=== PATIENT | male | born 1955 | race Caucasian/White ===

== ENCOUNTER → 2020-09-03 15:22 | Outpatient (ROUT) | payer OTHER, SELFPAY ==
[2020-09-03 15:50] LABS: Add Manual Diff / Slide Review NO; Basophils Absolute Auto 100 /uL (0-100); Basophils Percent Auto 2.8 % (0-2); Eosinophils Absolute Auto 100 /uL (0-450); Hematocrit 42.6 % (41-53); Hemoglobin 14.9 g/dL (13.5-17.5); Lymphocytes Absolute Auto 1000 /uL (1100-4500); Lymphocytes Percent Auto 24.9 % (25-40); Mean Corpuscular HGB Conc 35.1 % (30-36); Mean Corpuscular Hemoglobin 35.2 PG (26-34); Mean Corpuscular Volume 100.2 fL (80-100); Monocytes Absolute Auto 400 /uL (0-900); Monocytes Percent Auto 11.6 % (3-14); Neutrophils Absolute Auto 2300 /uL (1500-7000); Neutrophils Percent Auto 58.7 % (50-75); Platelet Count 152 X10^3/uL (150-400); Red Blood Cell Count 4.25 X10^6/uL (4.5-5.9); Red Cell Distribution Width 12.9 % (11.6-14.8); White Blood Cell Count 3.9 X10^3/uL (4.5-11.0)
[2020-09-03 16:27] LABS: HEMOLYSIS < 15 (0-50)
[2020-09-03 16:30] LABS: TSH w/ Reflex to FT4 1.03 uIU/mL (0.47-4.68)
[2020-09-03 16:32] LABS: Aspartate Aminotransferase 34 IU/L (17-59); BUN Creatinine Ratio 24.2 (6-22); Blood Urea Nitrogen 16 mg/dL (9-20); Calcium 9.3 mg/dL (8.4-10.2); Carbon Dioxide 25 mmol/L (22-32); Chloride 103 mmol/L (98-107); Cholesterol 166 mg/dL (140-199); Estimated Glomerular Filt Rate > 60.0 mL/min (>60); Glucose 105 mg/dL (80-110); HDL Cholesterol 75 mg/dL (40-60); LDL Cholesterol Calculated 83 mg/dL (<100); Potassium 4.2 mmol/L (3.4-5.1); Sodium 133 mmol/L (137-145); Triglycerides 42 mg/dL (35-150)
[2020-09-03 17:15] LABS: Prostate Specific Antigen 0.472 ng/mL (0.10-4.00)
[2020-09-03 17:17] LABS: Testosterone 276 ng/dL (71.8-623)
[2020-09-03 21:03] LABS: Hepatitis B Surface Antigen NEGATIVE s/c (NEGATIVE)
[2020-09-03 21:21] LABS: HIV 1 & 2 Ab/Ag 4th Gen Combo NEGATIVE (NEGATIVE); Hep C Virus Ab w/Reflex Quant NEGATIVE s/c (NEGATIVE)
[2020-09-04 06:10] LABS: Hepatitis B Surf AB Quant <3.1 mIU/mL (Immunity>9.9)
== END ==
PROVIDERS: Family Provider Family Medicine; PCP Family Medicine; Visit Provider Internal Medicine
DX: E78.2 Mixed hyperlipidemia (principal); E03.9 Hypothyroidism, unspecified; I10 Essential (primary) hypertension
CPT/HCPCS: 80048; 80061; 84153; 84403; 84443; 84450; 85025; 86706; 86803; 87340; 87389

== ENCOUNTER → 2021-07-13 08:09 | Outpatient (CLI) | payer OTHER, SELFPAY ==
[2021-07-13 09:53] LABS: Hematocrit 41.1 % (41-53); Hemoglobin 14.7 g/dL (13.5-17.5); Mean Corpuscular HGB Conc 35.7 % (30-36); Mean Corpuscular Hemoglobin 34.6 PG (26-34); Mean Corpuscular Volume 97.1 fL (80-100); Platelet Count 147 X10^3/uL (150-400); Red Blood Cell Count 4.23 X10^6/uL (4.5-5.9); Red Cell Distribution Width 12.4 % (11.6-14.8)
[2021-07-13 10:04] LABS: Alanine Aminotransferase 20 IU/L (<50); Albumin 4.4 g/dL (3.5-5.0); Albumin Globulin Ratio 1.7 (1.0-2.8); Alkaline Phosphatase 54 U/L (38-126); Aspartate Aminotransferase 32 IU/L (17-59); BUN Creatinine Ratio 17.9 (6-22); Bilirubin Total 1.3 mg/dL (0.2-1.3); Blood Urea Nitrogen 15 mg/dL (9-20); Calcium 8.6 mg/dL (8.4-10.2); Carbon Dioxide 26 mmol/L (22-32); Chloride 104 mmol/L (98-107); Cholesterol 145 mg/dL (140-199); Estimated Glomerular Filt Rate > 60 mL/min (>60); Globulin 2.6 g/dL (1.7-4.1); Glucose 100 mg/dL (80-110); HDL Cholesterol 59 mg/dL (40-60); HEMOLYSIS < 15 (0-50); LDL Cholesterol Calculated 76 mg/dL (<100); Lipase 258 U/L (23-300); Potassium 3.7 mmol/L (3.4-5.1); Sodium 139 mmol/L (137-145); Triglycerides 49 mg/dL (35-150); Uric Acid 5.1 mg/dL (3.5-8.5)
[2021-07-13 10:31] LABS: Prostate Specific Antigen 0.555 ng/mL (0.10-4.00)
[2021-07-13 10:47] LABS: TSH w/ Reflex to FT4 2.05 uIU/mL (0.47-4.68)
== END ==
PROVIDERS: Family Provider Family Medicine; PCP Internal Medicine; Referring Provider Internal Medicine; Visit Provider Internal Medicine
DX: E03.9 Hypothyroidism, unspecified (principal); N40.0 Benign prostatic hyperplasia without lower urinary tract symptoms; R17 Unspecified jaundice; I25.10 Atherosclerotic heart disease of native coronary artery without angina pectoris
CPT/HCPCS: 36415; 80053; 80061; 82248; 83690; 84153; 84443; 84550; 85027

== ENCOUNTER → 2021-08-19 07:26 | Outpatient (CLI) | payer OTHER, SELFPAY ==
--- NOTE | 2021-08-19 07:28 | DI.US.S_ITS ---
PROCEDURE: US ABDOMEN COMPLETE INDICATIONS: JAUNDICE TECHNIQUE: Real-time scanning was performed of the abdominal and retroperitoneal organs, with image documentation. COMPARISON: None. FINDINGS: Liver: Liver is normal in size and homogeneous in echotexture. Gallbladder: The gallbladder is normal without stones, sludge, wall thickening, or pericholecystic fluid. Biliary ducts: Intrahepatic bile ducts are non-dilated. Extrahepatic bile duct caliber measures 5.8 mm. Normal is 6-7 mm or less in diameter, or 10 mm or less post-cholecystectomy. Pancreas: Visualized portions of the pancreas are sonographically normal. Spleen: Spleen is normal in size and homogeneous in echotexture. Kidneys: Kidneys are normal in size and echotexture. Right kidney measures 10.3 cm long; left kidney measures 11.0 cm long. No hydronephrosis or nephrolithiasis. No solid masses. Aorta: Visualized aorta is normal in caliber at less than 3 cm. Mild atherosclerotic plaque present in the mid to distal aorta. Iliacs: Proximal common iliac arteries are normal in caliber at less than 2.5 cm. IVC: Intrahepatic inferior vena cava is patent. Miscellaneous: No free abdominal fluid. IMPRESSION: 1. Normal sonographic appearance of the liver. If further imaging evaluation is needed, MR imaging of the liver and biliary tree may be useful. 2. No biliary dilatation. Dictated by: Latisha David M.D. on 08/19/2021 at 10:09 Approved by: Latisha David M.D. on 08/19/2021 at 10:14
--- NOTE | 2021-08-19 07:28 | DI.US.S_ITS ---
PROCEDURE: US CAROTID DOPPLER BI INDICATIONS: carotid stenosis TECHNIQUE: Color and pulse Doppler interrogation was performed of both carotid systems, with image documentation and velocity measurements. COMPARISON: [facility], US, US CAROTID BILATERAL, 09/19/2017, 7:10. [facility] Ul[facility]ound, US, US CAROTID DPLX DOPPLER BILAT, 03/31/2015, 7:30. [facility], [place], CAROTID ARTERY DOPPLER BILAT, 11/14/2013, 10:13. FINDINGS: Stenosis calculations are based on SRU (Society of Radiologists in Ultrasound) criteria. Right side: (Comparison made to the 2018 study.) Brachial blood pressure: 145/78 mm Hg. Common carotid artery peak systolic velocity: 85 cm/sec (prior 113 cm/s). Internal carotid artery peak systolic velocity: 112 cm/sec (prior 99 cm/s). Internal carotid artery end diastolic velocity: 28 cm/sec (prior 29 cm/s). External carotid artery peak systolic velocity: 82 cm/sec (prior 101 cm/s). ICA/CCA peak systolic ratio: 1.3 (prior 0.87). Barrios scale imaging description: Moderate atherosclerotic changes are seen. Percent internal carotid artery stenosis: Less than 50% by velocity criteria. Vertebral artery: Flow direction is antegrade. Left side: Brachial blood pressure: 86601 mm Hg. Common carotid artery peak systolic velocity: 118 cm/sec (prior 136 cm/s). Internal carotid artery peak systolic velocity: 259 cm/sec (prior 133 cm/s). Internal carotid artery end diastolic velocity: 58 cm/sec (prior 32 cm/s). External carotid artery peak systolic velocity: 94 cm/sec (prior 103 cm/s). ICA/CCA peak systolic ratio: 4.1 (prior 0.98). Barrios scale imaging description: Moderate atherosclerotic change can be seen. Percent internal carotid artery stenosis: Greater than 70%. Vertebral artery: Flow direction is antegrade. IMPRESSION: There is now greater than 70% stenosis seen involving the left internal carotid artery. Vascular surgery consultation is recommended. Dictated by: Reji Cid M.D. on 08/19/2021 at 9:28 Approved by: Reji Cid M.D. on 08/19/2021 at 9:32
== END ==
PROVIDERS: Family Provider Family Medicine; PCP Internal Medicine; Referring Provider Internal Medicine; Visit Provider Internal Medicine
DX: R17 Unspecified jaundice (principal); I65.23 Occlusion and stenosis of bilateral carotid arteries
CPT/HCPCS: 76700; 93880

== ENCOUNTER → 2022-05-13 10:39 | Outpatient (CLI) | payer OTHER, SELFPAY ==
--- NOTE | 2022-05-13 | DI.NM.S_ITS ---
PROCEDURE: NM FREDERICK PERF SPECT REST & STR Rest and exercise myocardial perfusion SPECT with gated imaging and ejection fraction RADIOPHARMACEUTICAL: 10.8 mCi Tc-99m sestamibi IV at rest and 25.7 mCi Tc-99m sestamibi IV at peak exercise. A one day-protocol was performed. INDICATIONS: Atherosclerotic heart disease of nondalton TECHNIQUE: Radiopharmaceutical was injected at peak stress test, and also at rest. SPECT images were obtained. SPECT myocardial perfusion images were displayed in short axis, horizontal long axis, and vertical long axis views. Gated images were reviewed using Nudge software. COMPARISON: None. CARDIAC STRESS: A standard Be treadmill exercise tolerance test was performed by the patient under the supervision of an attending staff. The patient exercised for 12 minutes and 1 seconds; functional aerobic impairment (TIERA) is -54%. Hemodynamic data: There is normal blood pressure and heart rate response to exercise stress. Patient achieved 106% of maximum predicted heart rate at peak exercise. Symptoms: Patient denied chest pain during exercise. EKG: Sinus rhythm with no ST changes at rest. Mild upsloping ST depressions in the inferior and anterolateral leads during recovery; rare PVCs. FINDINGS: Raw data: There is good myocardial labeling by radiotracer. No significant motion artifacts. Zycc-hl-jsbqv ratio is 0.21 (normal is less than 0.38 for sestamibi tracer, and less than 0.50 for thallium tracer). Left ventricle function: Gated images demonstrate normal left ventricle wall thickening. No segmental wall motion abnormality. No transient ischemic dilation; TID is 0.91 (normal less than 1.3). The left ventricle resting end-diastolic volume is 170 mL. Left ventricle stress ejection fraction is 61%; normal values are above 45%. Myocardial perfusion: There is normal distribution of activity in the left and right ventricular myocardium. No fixed or reversible perfusion defects. SSS 0. IMPRESSION: Low risk, normal treadmill nuclear stress test from ischemia standpoint. Enlarged LV with EDV 170cc. Consider Echo to assess cardiac morphology and function. 1) No perfusion evidence of ischemia or infarction. 2) Enlarged left ventricle (LVEDV 170cc) with normal wall motion, and normal systolic function (EF post stress 61%). 3) Mild upsloping ST depressions in the inferior and anterolateral leads during recovery. These changes are non-diagnostic in the setting of reassuring perfusion images. 4) No angina during the study. 5) Excellent exercise tolerance (12.6 METS, TIERA -54%). Target heart rate achieved. Appropriate BP response to exercise. 6) No prior nuclear stress test available for comparison. Dictated by: Samm Manzano MD on 05/13/2022 at 16:49 Approved by: Samm Manzano MD on 05/13/2022 at 16:55
== END ==
PROVIDERS: Family Provider Family Medicine; PCP Internal Medicine; Referring Provider Internal Medicine Cardiovascular Disease; Visit Provider Internal Medicine Cardiovascular Disease
DX: I25.10 Atherosclerotic heart disease of native coronary artery without angina pectoris (principal)
CPT/HCPCS: 78452; 93017; A9502

== ENCOUNTER → 2022-07-08 11:51 | Outpatient (CLI) | payer OTHER, SELFPAY ==
[2022-07-08 14:31] LABS: Erythrocyte Sedimentation Rate 2 MM/HR (0-15)
[2022-07-08 14:33] LABS: C-Reactive Protein Quant < 0.5 mg/dL (<1.0); Glucose 91 mg/dL (80-110)
[2022-07-08 14:43] LABS: Free T3, Triiodothyronine Free 3.01 pg/mL (2.77-5.27); Free T4, Direct Thyroxine 1.06 ng/dL (0.78-2.19)
[2022-07-08 14:56] LABS: Thyroid Stimulating Hormone 2.53 uIU/mL (0.47-4.68)
[2022-07-09 06:08] LABS: Labcorp Hemoglobin (Hb) A1c 4.6 % (4.8-5.6)
== END ==
PROVIDERS: Family Provider Family Medicine; PCP Internal Medicine; Referring Provider Internal Medicine; Visit Provider Internal Medicine
DX: M13.0 Polyarthritis, unspecified (principal); R73.01 Impaired fasting glucose; M06.9 Rheumatoid arthritis, unspecified; E03.9 Hypothyroidism, unspecified
CPT/HCPCS: 36415; 82947; 83036; 84439; 84443; 84481; 85651; 86140

== ENCOUNTER → 2023-01-04 09:15 | Outpatient (CLI) | payer OTHER, SELFPAY ==
[2023-01-04 09:57] LABS: Hematocrit 41.1 % (41-53); Hemoglobin 14.6 g/dL (13.5-17.5); Mean Corpuscular HGB Conc 35.4 % (30-36); Mean Corpuscular Hemoglobin 35.2 PG (26-34); Mean Corpuscular Volume 99.4 fL (80-100); Platelet Count 142 X10^3/uL (150-400); Red Blood Cell Count 4.14 X10^6/uL (4.5-5.9); Red Cell Distribution Width 12.9 % (11.6-14.8); White Blood Cell Count 3.4 X10^3/uL (4.5-11.0)
[2023-01-04 10:14] LABS: Hemoglobin A1C% w Est Avg Glu 4.7 % (4.0-6.0)
[2023-01-04 10:16] LABS: Alanine Aminotransferase 33 IU/L (<50); Albumin 4.4 g/dL (3.5-5.0); Albumin Globulin Ratio 1.7 (1.0-2.8); Alkaline Phosphatase 59 U/L (38-126); Aspartate Aminotransferase 39 IU/L (17-59); BUN Creatinine Ratio 19.8 (6-22); Bilirubin Total 1.6 mg/dL (0.2-1.3); Blood Urea Nitrogen 17 mg/dL (9-20); Calcium 9.5 mg/dL (8.4-10.2); Carbon Dioxide 29 mmol/L (22-32); Chloride 100 mmol/L (98-107); Cholesterol 148 mg/dL (140-199); Estimated Glomerular Filt Rate > 60 mL/min (>60); Globulin 2.6 g/dL (1.7-4.1); Glucose 104 mg/dL (80-110); HDL Cholesterol 99 mg/dL (40-60); HEMOLYSIS < 15 (0-50); LDL Cholesterol Calculated 42 mg/dL (<100); Potassium 4.1 mmol/L (3.4-5.1); Sodium 135 mmol/L (137-145); Triglycerides 33 mg/dL (35-150)
[2023-01-04 10:48] LABS: TSH w/ Reflex to FT4 1.18 uIU/mL (0.47-4.68)
== END ==
PROVIDERS: Family Provider Family Medicine; PCP Internal Medicine; Referring Provider Internal Medicine; Visit Provider Internal Medicine
DX: E78.2 Mixed hyperlipidemia (principal); I10 Essential (primary) hypertension; I25.10 Atherosclerotic heart disease of native coronary artery without angina pectoris; N40.0 Benign prostatic hyperplasia without lower urinary tract symptoms; E03.9 Hypothyroidism, unspecified; R73.01 Impaired fasting glucose
CPT/HCPCS: 36415; 80053; 80061; 83036; 84153; 84443; 85027

== ENCOUNTER → 2024-06-11 09:15 | Outpatient (CLI) | payer MEDICARE, OTHER, SELFPAY ==
[2024-06-11 09:54] LABS: Hematocrit 38.9 % (41-53); Hemoglobin 13.8 g/dL (13.5-17.5); Mean Corpuscular HGB Conc 35.5 % (30-36); Mean Corpuscular Hemoglobin 33.8 PG (26-34); Mean Corpuscular Volume 95.2 fL (80-100); Platelet Count 149 X10^3/uL (150-400); Red Blood Cell Count 4.08 X10^6/uL (4.5-5.9); Red Cell Distribution Width 12.4 % (11.6-14.8); White Blood Cell Count 3.4 X10^3/uL (4.5-11.0)
[2024-06-11 10:41] LABS: Alanine Aminotransferase 28 IU/L (<50); Albumin 4.6 g/dL (3.5-5.0); Albumin Globulin Ratio 1.9 (1.0-2.8); Alkaline Phosphatase 55 U/L (38-126); Aspartate Aminotransferase 36 IU/L (17-59); BUN Creatinine Ratio 26.5 (6-22); Blood Urea Nitrogen 22 mg/dL (9-20); Calcium 9.2 mg/dL (8.4-10.2); Carbon Dioxide 28 mmol/L (22-32); Chloride 101 mmol/L (98-107); Cholesterol 150 mg/dL (140-199); Estimated Glomerular Filt Rate > 60 mL/min (>60); Globulin 2.4 g/dL (1.7-4.1); Glucose 109 mg/dL (80-110); HDL Cholesterol 82 mg/dL (40-60); HEMOLYSIS < 15 (0-50); LDL Cholesterol Calculated 59 mg/dL (<100); Potassium 4.5 mmol/L (3.4-5.1); Sodium 136 mmol/L (137-145); Triglycerides 47 mg/dL (35-150)
[2024-06-11 11:11] LABS: Prostate Specific Antigen 0.452 ng/mL (0.10-4.00)
[2024-06-11 11:13] LABS: Testosterone 545 ng/dL (71.8-623)
== END ==
LOC: LAB 09:17
PROVIDERS: Family Provider Family Medicine; PCP Internal Medicine; Referring Provider Internal Medicine; Visit Provider Internal Medicine
DX: E03.9 Hypothyroidism, unspecified (principal); N40.1 Benign prostatic hyperplasia with lower urinary tract symptoms; I25.10 Atherosclerotic heart disease of native coronary artery without angina pectoris; R79.89 Other specified abnormal findings of blood chemistry; N13.8 Other obstructive and reflux uropathy; I10 Essential (primary) hypertension
CPT/HCPCS: 36415; 80053; 80061; 82088; 84153; 84244; 84403; 84443; 85027

== ENCOUNTER → 2024-07-02 07:02 | Outpatient (CLI) | payer MEDICARE, OTHER, SELFPAY ==
[2024-07-02 07:41] LABS: Add Manual Diff / Slide Review NO; Basophils Absolute Auto 100 /uL (0-100); Basophils Percent Auto 1.8 % (0-2); Eosinophils Absolute Auto 100 /uL (0-450); Eosinophils Percent Auto 3.1 % (2-4); Hematocrit 38.6 % (41-53); Hemoglobin 13.6 g/dL (13.5-17.5); Lymphocytes Absolute Auto 1100 /uL (1100-4500); Lymphocytes Percent Auto 35.2 % (25-40); Mean Corpuscular HGB Conc 35.2 % (30-36); Mean Corpuscular Hemoglobin 33.7 PG (26-34); Mean Corpuscular Volume 95.8 fL (80-100); Monocytes Absolute Auto 400 /uL (0-900); Monocytes Percent Auto 13.6 % (3-14); Neutrophils Absolute Auto 1500 /uL (1500-7000); Neutrophils Percent Auto 46.3 % (50-75); Platelet Count 148 X10^3/uL (150-400); Red Blood Cell Count 4.04 X10^6/uL (4.5-5.9); Red Cell Distribution Width 12.8 % (11.6-14.8); White Blood Cell Count 3.2 X10^3/uL (4.5-11.0)
[2024-07-02 07:59] LABS: BUN Creatinine Ratio 22.1 (6-22); Blood Urea Nitrogen 19 mg/dL (9-20); Calcium 9.3 mg/dL (8.4-10.2); Carbon Dioxide 25 mmol/L (22-32); Chloride 102 mmol/L (98-107); Estimated Glomerular Filt Rate > 60 mL/min (>60); Glucose 103 mg/dL (80-110); HEMOLYSIS < 15 (0-50); Potassium 4.8 mmol/L (3.4-5.1); Sodium 133 mmol/L (137-145)
[2024-07-02 08:29] LABS: Cortisol AM (Before 10AM) 13.8 ug/dL (4.46-22.7)
[2024-07-02 08:33] LABS: Ferritin 31 ng/mL (18-464)
== END ==
PROVIDERS: Family Provider Family Medicine; PCP Internal Medicine; Referring Provider Internal Medicine; Visit Provider Internal Medicine
DX: E26.9 Hyperaldosteronism, unspecified (principal); D61.818 Other pancytopenia
CPT/HCPCS: 36415; 80048; 82533; 82728; 85025

== ENCOUNTER → 2024-07-11 16:08 | Outpatient (CLI) | payer MEDICARE, OTHER, SELFPAY ==
--- NOTE | 2024-07-11 16:10 | DI.MRI.S_ITS ---
PROCEDURE: MR ANGIO ABDOMEN WO/W CON INDICATIONS: renal artery stenosis, hypertension TECHNIQUE: Precontrast axial and coronal TruFISP through the abdomen. Dynamic coronal MRA using Care Bolus timing during the administration of contrast. Post-contrast axial VIBE through the kidneys. 3-dimensional maximum intensity projection (MIP) reformats constructed. COMPARISON: [facility], US, US RENAL ARTERIAL DOPPLER, 07/04/2024, 10:35. FINDINGS: Image quality: Excellent. Renal arteries: Single bilateral renal arteries are present. T there is a high-grade, roughly 70% stenosis of the proximal non ostial right renal artery. There is mild diffuse stenosis of the left renal artery. Abdominal aorta: Aorta is normal in caliber, and is patent. Mesenteric arteries: Celiac trunk, superior and inferior mesenteric arteries are widely patent. Extravascular soft tissues: Visualized solid organs appear normal in size on limited pre-contrast images. No retroperitoneal or mesenteric adenopathy by size criteria. Bowel loops are normal in caliber. No free fluid. No ventral hernias. Bones: Marrow demonstrates normal overall signal. IMPRESSION: High-grade right renal artery stenosis. Dictated by: Lian Farias M.D. on 07/11/2024 at 16:47 Approved by: Lian Farias M.D. on 07/11/2024 at 16:49
== END ==
PROVIDERS: Family Provider Family Medicine; PCP Internal Medicine; Referring Provider Internal Medicine; Visit Provider Internal Medicine
DX: I70.1 Atherosclerosis of renal artery (principal); I10 Essential (primary) hypertension
CPT/HCPCS: C8902; A9579

== ENCOUNTER → 2024-07-12 14:12 | Outpatient (CLI) | payer MEDICARE, OTHER, SELFPAY ==
--- NOTE | 2024-07-12 14:13 | DI.CT.S_ITS ---
PROCEDURE: CT ANGIO ABDOMEN PELVIS INDICATIONS: right renal artery stenosis TECHNIQUE: After the administration of intravenous contrast, 2.5 mm sections acquired from the diaphragm to the iliac crests. 10 mm maximum intensity projection (MIP) coronal and sagittal reformats were then performed. For radiation dose reduction, the following was used: automated exposure control. COMPARISON: [facility], US, US RENAL ARTERIAL DOPPLER, 07/04/2024, 10:35. FINDINGS: Image quality: Diagnostic. Abdominal aorta: No aortic aneurysm or evidence of acute aortic syndrome. Mesenteric arteries: Patent without hemodynamically significant stenosis. Renal arteries: There is a short segment of 50% narrowing of the mid right renal artery (series 4, image 57), measuring 7 mm in length. No hemodynamically significant stenosis of the left renal artery. Lower chest: Unremarkable. ABDOMEN: Liver: No solid mass. Gallbladder: No radiopaque gallstones or wall thickening. Biliary ducts: No biliary dilation. Pancreas: No ductal dilation. Pancreatic divisum versus prominent accessory duct. Spleen: Size is within normal limits. Adrenal Glands: No adrenal nodules. Kidneys and Ureters: No hydronephrosis. No solid mass. No complex renal cystic lesion which requires follow up. Stomach and Bowel: Normal colonic caliber, without significant wall thickening. Colonic diverticulosis without evidence of diverticulitis. Peritoneum: No abnormal intraperitoneal fluid. No free air. Ventral Wall: No hernia. Abdominal Nodes: No retroperitoneal or mesenteric adenopathy by size criteria. Vessels: Aorta, as above. Normal IVC. PELVIS: Pelvic Organs: Unremarkable. Bladder: Unremarkable. Pelvic Nodes: No enlarged lymph nodes. Miscellaneous: No inguinal hernias are seen. Bones: No aggressive osseous abnormality. IMPRESSION: 7 mm segment 50% narrowing of the right mid renal artery. Dictated by: Vinod Arriaga M.D. on 07/12/2024 at 16:24 Approved by: Vinod Arriaga M.D. on 07/12/2024 at 16:27
== END ==
PROVIDERS: Family Provider Family Medicine; PCP Internal Medicine; Referring Provider Internal Medicine; Visit Provider Internal Medicine
DX: I70.1 Atherosclerosis of renal artery (principal); I15.9 Secondary hypertension, unspecified
CPT/HCPCS: 74174; Q9967

== ENCOUNTER → 2024-08-08 14:42 | Outpatient (CLI) | payer MEDICARE, OTHER, SELFPAY ==
--- NOTE | 2024-08-08 14:45 | DI.ECHO.S_ITS ---
[facility] : : [id number] : [place] : : [id number] : : Phone: [phone] Echocardiogram Report + + :Name: DEISY BEDOLLA V Study Date: 08/08/2024 Height: 67 in : :Hospital ReadingLocation: Weight: 160 lb : : Gender: Male BSA: 1.8 m2 : :: 1955 Age: 69 yrs BP: 153/72 mmHg: :Reason For Study: HYPERTENSION, GARRETT : :Ordering Physician: TRUNG, : :CHIQUITA Masters Performed By: Davis Brizuela : :Referring: CHIQUITA NINO : + + Interpretation Summary The left ventricle is mildly dilated. The left ventricular ejection fraction is normal. The ejection fraction is estimated to be 65-70%. Previous LVEF 60 to 65%. The right ventricle is mildly dilated. The right ventricular systolic function is normal. No significant valvular pathology seen. The IVC is of normal diameter and collapses greater than 50% with a sniff. This suggests a low right atrial pressure of 3 mm Hg. Procedure: A two-dimensional transthoracic echocardiogram with color flow and Doppler was performed. The study quality was technically good. Comparison is made with the echocardiogram of 05/06/2022. The patient was in normal sinus rhythm during the exam. Left Ventricle: The left ventricle is mildly dilated. Proximal septal thickening is noted. There is no ventricular septal defect visualized. The left ventricular ejection fraction is normal. The ejection fraction is estimated to be 65-70%. There are no focal wall motion abnormalities. Diastolic parameters suggest probable normal left ventricular diastolic function and normal filling pressures. Right Ventricle: The right ventricle is mildly dilated. The right ventricular systolic function is normal. Atria: The left atrium is moderately dilated. The left atrium has mildly increased in size since the prior echo exam. The right atrium is moderately dilated. There is no Doppler evidence for an interatrial shunt. Mitral Valve: The mitral valve leaflets appear borderline thickened, but open well. There is trace mitral regurgitation. Aortic Valve: The aortic valve is trileaflet. The aortic valve opens well. The aortic valve is slightly calcified. There is no aortic valve stenosis. No aortic regurgitation is present. Tricuspid Valve: The tricuspid valve leaflets are thin and pliable. There is trace tricuspid regurgitation. Pulmonary artery pressures cannot be estimated because of the lack of a measurable TR jet velocity. Pulmonic Valve: The pulmonic valve leaflets are thin and pliable; valve motion is normal. There is no pulmonic valvular regurgitation. Great Vessels: The aortic root is normal size. The ascending aorta is at the upper limits of normal in size. The pulmonary artery is normal size. The IVC is of normal diameter and collapses greater than 50% with a sniff. This suggests a low right atrial pressure of 3 mm Hg. Pericardium/ Pleura There is no pericardial effusion. There is no pleural effusion. MMode/2D Measurements & Calculations LVIDd: 6.2 cm LVOT diam: 2.2 cm LVIDs: 3.5 cm Ao root diam: 3.6 cm FS: 43.3 % asc Aorta Diam: 3.6 cm EPSS: 0.70 cm Ao Arch Diam (Prox Trans): 1.8 cm IVSd: 0.86 cm LVPWd: 1.1 cm LV chavez. diameter/BSA (cm/m^2): 3.3 LV sys. diameter/BSA (cm/m^2): 1.9 LA A2 area: 25.1 cm2 RA long axis: 5.9 cm LA A4 area: 30.8 cm2 RA area: 23.0 cm2 LA length (vol): 6.7 cm RA vol: 76.8 ml LA vol: 97.8 ml RA : 41.8 ml/m2 LA vol index: 53.2 ml/m2 IVC diam: 1.3 cm RVD1 (basal): 4.5 cm RVD2 (mid): 3.4 cm Doppler Measurements & Calculations Ao V2 max: 193.8 cm/sec LVOT Max Palmer: 136.6 cm/sec Ao V2 mean: 134.3 cm/sec LV V1 max P.5 mmHg Ao max P.0 mmHg LV V1 VTI: 27.8 cm Ao mean P.0 mmHg LEO(I,D): 2.5 cm2 Ao V2 VTI: 41.9 cm LEO(V,D): 2.6 cm2 sev ratio: 0.66 LEO indexed to BSA (cm^2/m^2): 1.3 MV E max palmer: 72.6 cm/sec PA V2 max: 133.0 cm/sec MV A max palmer: 58.1 cm/sec PA V2 mean: 97.8 cm/sec MV E/A: 1.2 PA mean P.2 mmHg Med Peak E' Palmer: 6.7 cm/sec PA pr(Accel): 17.3 mmHg E/E' med: 10.8 Lat Peak E' Palmer: 7.6 cm/sec E/E' lat: 9.5 E/e' average: 10.2 MV dec time: 0.25 sec [facility] 103.7 ml Reading Physician:02:04 PM
== END ==
LOC: ECHO 14:45
PROVIDERS: Family Provider Family Medicine; PCP Internal Medicine; Referring Provider Nurse Practitioner; Visit Provider Nurse Practitioner
DX: I10 Essential (primary) hypertension (principal); R06.09 Other forms of dyspnea; I70.0 Atherosclerosis of aorta
CPT/HCPCS: 93306

== ENCOUNTER → 2024-08-12 14:11 | Outpatient (CLI) | payer MEDICARE, OTHER, SELFPAY ==
[2024-08-12 15:43] LABS: BUN Creatinine Ratio 28.9 (6-22); Blood Urea Nitrogen 24 mg/dL (9-20); Calcium 9.4 mg/dL (8.4-10.2); Carbon Dioxide 26 mmol/L (22-32); Chloride 99 mmol/L (98-107); Estimated Glomerular Filt Rate > 60 mL/min (>60); Glucose 92 mg/dL (70-99); HEMOLYSIS < 15 (0-50); Potassium 4.5 mmol/L (3.4-5.1); Sodium 134 mmol/L (137-145)
== END ==
PROVIDERS: Family Provider Family Medicine; PCP Internal Medicine; Referring Provider Internal Medicine; Visit Provider Internal Medicine
DX: I10 Essential (primary) hypertension (principal)
CPT/HCPCS: 36415; 80048

== ENCOUNTER → 2024-08-13 07:41 | Outpatient (CLI) | payer MEDICARE, OTHER, SELFPAY ==
--- NOTE | 2024-08-20 17:38 | DI.NM.S_ITS ---
DATE OF SERVICE: 08/13/2024 EXERCISE PERFUSION STUDY INDICATIONS: Shortness of breath, hypertension, atherosclerotic vascular disease. RADIOPHARMACEUTICAL: 26.8 mCi technetium-99m Myoview IV was injected at stress and 26.6 millicurie technetium-99m Myoview IV was injected at rest. Two days protocol was performed. CARDIAC STRESS: The patient walked on Be protocol for 10 minutes, achieved maximum heart rate of 137, which was 91% of target heart rate. Resting blood pressure 120/58 and peak blood pressure of 136/70. TIERA - 39%. 10.7 METS of workload. Baseline rhythm sinus with mild sinus bradycardia. LVH present. During stress, no convincing ischemic changes seen. Rare PVCs and PACs. No chest pain. Had some shortness of breath. RAW DATA: There is increased subdiaphragmatic activity. GATED STUDY: Stress LV ejection fraction 60% without any obvious wall motion abnormalities. Resting end-diastolic volume 169 mL. TID ratio 0.82, which is within normal limits. Lung/heart ratio 0.28, which is within normal limits. MYOCARDIAL PERFUSION SCAN: Stress supine, resting supine and stress prone images were compared to each other. Stress supine and resting supine images revealed small size, moderately decreased perfusion of basal inferior wall extending into the basal inferoseptum and minimally decreased perfusion of inferior apex which got completely resolved during stress prone images suggestive of diaphragmatic tissue attenuation artifact. Summed stress score and summed rest score zero and difference score is zero. CONCLUSION: I will call this study a normal myocardial perfusion study with evidence of diaphragmatic tissue attenuation artifact which got resolved during stress prone images. Excellent exercise tolerance. Normal hemodynamic response. No convincing ischemic changes. No significant arrhythmias. No anginal symptoms. Preserved stress LV function. Overall, low-risk myocardial perfusion scan. The patient had exercise perfusion study in April 2022 at that time also normal myocardial perfusion. At that time, the patient walked on Be protocol for 12 minutes. LV end-diastolic volume was 170 mL. In this study 169 mL. Noé Figueroa - IESHA/galina/YAMILET doc#: [id number]/job#: [id number] dd: 08/20/2024 16:49:00 dt: 08/20/2024 17:01:00 DICTATING MD/COPIES TO: Maria C Fraser MD COPIES MNE: UMESH;
== END ==
LOC: NUCM 07:42
PROVIDERS: Family Provider Family Medicine; PCP Internal Medicine; Referring Provider Nurse Practitioner; Visit Provider Nurse Practitioner
DX: I10 Essential (primary) hypertension (principal); R06.09 Other forms of dyspnea; I25.10 Atherosclerotic heart disease of native coronary artery without angina pectoris
CPT/HCPCS: 78452; 93017; A9502

== ENCOUNTER → 2024-09-19 07:34 | Outpatient (CLI) | payer MEDICARE, OTHER, SELFPAY ==
[2024-09-19 08:34] LABS: Hematocrit 40.3 % (41-53); Hemoglobin 14.2 g/dL (13.5-17.5); Mean Corpuscular HGB Conc 35.4 % (30-36); Mean Corpuscular Hemoglobin 35.4 PG (26-34); Platelet Count 133 X10^3/uL (150-400); Red Blood Cell Count 4.03 X10^6/uL (4.5-5.9); Red Cell Distribution Width 12.8 % (11.6-14.8); White Blood Cell Count 3.9 X10^3/uL (4.5-11.0)
[2024-09-19 08:41] LABS: Reticulocyte Count, Percent 1.3 % (0.9-2.6)
[2024-09-19 08:51] LABS: HEMOLYSIS < 15 (0-50); Iron 74 ug/dL (49-181)
[2024-09-19 08:54] LABS: Alanine Aminotransferase 35 IU/L (<50); Albumin 4.5 g/dL (3.5-5.0); Alkaline Phosphatase 55 U/L (38-126); Aspartate Aminotransferase 41 IU/L (17-59); Bilirubin Total 1.4 mg/dL (0.2-1.3); Blood Urea Nitrogen 18 mg/dL (9-20); Calcium 9.4 mg/dL (8.4-10.2); Carbon Dioxide 28 mmol/L (22-32); Chloride 104 mmol/L (98-107); Cholesterol 93 mg/dL (140-199); Estimated Glomerular Filt Rate > 60 mL/min (>60); Globulin 2.2 g/dL (1.7-4.1); Glucose 96 mg/dL (70-99); HDL Cholesterol 73 mg/dL (40-60); HEMOLYSIS < 15 (0-50); LDL Cholesterol Calculated 12 mg/dL (<100); Potassium 4.9 mmol/L (3.4-5.1); Sodium 139 mmol/L (137-145); Total Protein 6.7 g/dL (6.3-8.2); Triglycerides 40 mg/dL (35-150)
[2024-09-19 09:02] LABS: Percent Iron Saturation 25 % (20-50); Total Iron Binding Capacity 302 ug/dL (261-462); Transferrin 236 mg/dL (206-381)
[2024-09-19 09:28] LABS: Ferritin 33 ng/mL (18-464)
[2024-09-19 09:42] LABS: Vitamin B12 Reflex MMA if <400 765 pg/mL (239-931)
[2024-09-19 10:00] LABS: Folate 19.1 ng/mL (2.76-20.0)
== END ==
PROVIDERS: Family Provider Family Medicine; PCP Internal Medicine; Referring Provider Internal Medicine; Visit Provider Internal Medicine
DX: D61.818 Other pancytopenia (principal); E78.2 Mixed hyperlipidemia; I25.10 Atherosclerotic heart disease of native coronary artery without angina pectoris
CPT/HCPCS: 36415; 80053; 80061; 82607; 82728; 82746; 83540; 83550; 85025; 85045

== ENCOUNTER 2024-12-19 14:44 | Outpatient (CLI) | payer MEDICARE, OTHER, SELFPAY ==
[2024-12-19] VITALS (8 sets, daily range): BP systolic 126–166; BP diastolic 59–79; PULSE 58–64; RESP 15–24; O2SAT 96–98
[2024-12-19] MEDS: MIDAZOLAM 2 MG/2 ML VIAL IV (15:48)
[2024-12-19] MEDS: LIDOCAINE 2% INJ MDV 20ML 5 ML INJ (15:52)
[2024-12-19] MEDS: LIDOCAINE 1% 20 ML 5 ML INJ (15:52)
--- NOTE | 2024-12-19 16:07 | P.PCN_ITS ---
Date/Time/Diagnoses Date of procedure: 12/19/24 Time of procedure: 16:07 Pre-procedure diagnosis: 1. FACET ARTHROPATHY Post-procedure diagnosis: same Procedure Notes Procedure: 1. BILATERAL- L4, L5 and S1 DIAGNOSTIC MB BLOCKS with SA Anesthetic Indications: Noé is referred by Dr. Aguilera for treatment of Bilateral Axial LBP. Physician: Zeferino Mtz Total Fluoroscopy time (seconds): 8 Total sedation minutes: 10 Complications: none Procedure in detail & Post-procedure care: DESCRIPTION OF PROCEDURE Fluoroscopically guided, contrast-controlled bilateral L4, L5 and S1 medial branch blocks with 0.5cc of 2% Lidocaine. Following review of allergy and review of potential side effects and complications, including, but not necessarily limited to, infection, allergic reaction, local tissue breakdown, nerve injury, paralysis, stroke and possible , the patient indicated that the patient understood and agreed to proceed. An informed consent document was signed by the patient, witnessed by a nurse, and placed in the patient's chart. After review of previous anaesthesic history and IV conscious sedation the patient was deemed safe to proceed with today's procedure with IV conscious sedation as ASA class II designation. Safety time-out was performed to confirm patient ID, procedure to be performed and site of procedure. IV sedation was accomplished with a combination of 2mg of Versed was administered by the RN after DO order, titrated to patient comfort during the course of the procedure while the patient remained responsive to all verbal commands In the prone position, following sterile prep and drape of the lumbar region, the right L4, L5 and S1 anatomical location of the medial branch of the dorsal ramus was identified fluoroscopically. Subsequently an anesthetic skin wheal using 1% lidocaine solution was initiated at each of the anatomical spots. Subsequently then a 22-gauge 3.5-inch spinal needle was atraumatically introduced and advanced under fluoroscopic guidance at each of the corresponding sites at the right L4, L5 and S1 MB. After negative aspiration, 0.2cc of Isovue 200 was injected, confirming placement without vascular or intrathecal uptake. Subsequently then 0.5cc of 2% Lidocaine solution was injected at each of the corresponding sites at the right L4, L5 and S1 medial branch locations. The identical procedure was replicated on the left. The patient tolerated the procedure well without signs or symptoms of complications prior to transfer to the recovery area continued monitoring without incident. Post-procedure, the patient was monitored initiating provocative activities to measure the amount of relief from block of the facetogenic pain. The patient reported a VAS of 8 prior to the procedure and a post-procedure VAS of 1. It has been a pleasure to assist in the diagnostic and therapeutic care of your patient. POST OP INSTRUCTIONS The patient was provided with a Pain Log to complete over the next several hours and subsequent days prior to the patient's follow up with the ordering physician. If the patient has science manager relief to the solution applied, then they may be a candidate for medial branch rhizotomy. The patient is aware, was provided, once again, with a Pain Log and will follow up with the referring physician for review and clinical correlation
== END 2024-12-19 16:30 | disposition home or self-care (01) ==
LOC: RAD 14:45
PROVIDERS: PCP Internal Medicine; Referring Provider Physical Medicine & Rehabilitation; Visit Provider Physical Medicine & Rehabilitation
DX: M47.816 Spondylosis without myelopathy or radiculopathy, lumbar region (principal); M47.817 Spondylosis without myelopathy or radiculopathy, lumbosacral region
CPT/HCPCS: 64493; 64494; 99152; J2250

== ENCOUNTER 2025-01-02 07:27 | Outpatient (CLI) | payer MEDICARE, OTHER, SELFPAY ==
[2025-01-02] VITALS (13 sets, daily range): BP systolic 110–159; BP diastolic 54–75; PULSE 47–55; RESP 16–20; TEMP 36.4; O2SAT 95–100
[2025-01-02] MEDS: MIDAZOLAM 2 MG/2 ML VIAL IV (08:32)
[2025-01-02] MEDS: LIDOCAINE 1% (PF) 5 ML INJ (08:38)
[2025-01-02] MEDS: MIDAZOLAM 2 MG/2 ML VIAL 1 MG IV ×2 (08:52→09:01)
--- NOTE | 2025-01-02 09:13 | P.PCN_ITS ---
Date/Time/Diagnoses Date of procedure: 01/02/25 Time of procedure: 09:13 Pre-procedure diagnosis: 1. RECALCITRANT FACET ARTHROPATHY Post-procedure diagnosis: same Procedure Notes Procedure: 1. BILATERAL L4 AND L5 MEDIAL BRANCH RADIOFREQUENCY NEUROTOMY AND S1 DORSAL RAMUS BRANCH RADIOFREQUENCY NEUROTOMY Indications: Noé is referred by Dr. Aguilera for treatment of facet arthropathy. Physician: Zeferino Mtz Total Fluoroscopy time (seconds): 16 Total sedation minutes: 37 Complications: none Procedure in detail & Post-procedure care: DESCRIPTION OF PROCEDURE Bilateral L4 and L5 medial branch radiofrequency neurotomy and bilateral S1 dorsal ramus radiofrequency neurotomy under fluoroscopy with conscious sedation. The patient is well known to this clinic having undergone previous facet injections with good but temporary relief. The patient has experienced appropriate, concordant relief with previous facet and median branch blocks but the patient's pain has been recalcitrant to further conservative measures. Therefore, based upon the patient's relief and persistent symptoms, the patient is considered an appropriate candidate for facet rhizotomy. All of the patient's questions regarding the risks versus benefits of the procedure, including, but not limited to, bleeding, infection, temporary as well as lasting nerve injury, paralysis, stroke, and , as well treatment alternatives were answered to satisfaction. After obtaining informed consent, denial of pertinent drug allergies, as well as being made aware of the potential risks of bleeding, infection, spinal cord trauma, paralysis, temporary and permanent nerve damage, seizure, stroke, and possible , the patient was brought to the fluoroscopy suite and positioned prone on the fluoroscopy table. The lumbar region was prepped in usual sterile fashion and covered with a fenestrated drape in the usual sterile fashion. Appropriate monitors applied including pulse oximeter, pulse, and blood pressure for regular monitoring throughout the procedure. After review of previous anaesthesic history and IV conscious sedation the patient was deemed safe to proceed with today's procedure with IV conscious sedation as ASA class II designation. Safety time-out was performed to confirm patient ID, procedure to be performed and site of procedure. IV sedation was accomplished with a combination of 4mg of Versed administered by the RN after DO order, titrated to patient comfort during the course of the procedure while the patient remained responsive to all verbal commands. After local infiltration using 1% lidocaine, under fluoroscopic guidance, a 10- cm RF insulated needle with a 10-mm active tip was positioned parallel to the junction of the right sacral ala and the superior articulating process where the S1 dorsal ramus resides. Needle placement was confirmed with motor stimulation of .5v on the right which produced local stimulation without radicular component. The stimulation was then increased to 2v with, once again, only local multifidus stimulation without radicular component. The needle was then removed and the identical procedure was performed along the length of the right L5 medial branch with motor stimulation at .7v on the right. The identical procedure was once again performed along the length of the right L4 medial branch with motor stimulation of .5v on the right. The medial branches were then anesthetised with 0.5% Marcaine. This was then followed by two discreet lesions performed at 80 degrees Celsius for 90 seconds each. The identical procedure was repeated on the left. The patient tolerated the procedure well without signs or symptoms of complications prior to transfer to the recovery area continued monitoring without incident. The patient was then transferred to the recovery area where they were observed for an appropriate period of time after the injection. The patient reported a VAS score of 9 prior to the procedure and a post-procedure VAS of 0. POST OP INSTRUCTIONS The patient was provided a Pain Log to continue to record the patient's response to the target-specific procedure prior to the patient's follow-up visit with the referring physician. Additionally, specific post-injection care instructions and a contact number to our office were provided if concerns arise regarding possible complications associated with the procedure are suspected.
== END 2025-01-02 09:55 | disposition home or self-care (01) ==
LOC: RAD 07:27
PROVIDERS: PCP Internal Medicine; Referring Provider Physical Medicine & Rehabilitation; Visit Provider Physical Medicine & Rehabilitation
DX: M47.816 Spondylosis without myelopathy or radiculopathy, lumbar region (principal); M47.817 Spondylosis without myelopathy or radiculopathy, lumbosacral region
CPT/HCPCS: 64635; 64636; 99152; 99153; J2250